=== PATIENT | female | born 1990 | race Caucasian/White ===

== ENCOUNTER 2020-01-04 16:33 | Emergency (ER) | payer OTHER ==
[2020-01-04] MEDS ORDERED: diphenhydrAMINE 50 MG/ML 1 ML VIAL IVP STA (16:54)
[2020-01-04] MEDS ORDERED: METOCLOPRAMIDE 5 MG/ML 2 ML VIAL IVP STA (16:54)
[2020-01-04] MEDS ORDERED: SODIUM CHLORIDE 0.9% 1,000 ML IV STA ×2 (16:54)
--- NOTE | 2020-01-04 17:05 | ED ---
Headache HPI - General Chief Complaint: Headache Stated Complaint: migraine/blurred vision Time Seen by Provider: 01/04/20 16:43 Source: RN notes reviewed, old records reviewed Mode of arrival: ambulatory Limitations: no limitations - History of Present Illness Initial Comments: Patient is a 29-year-old female with a history of migraines and ulcerative colitis. She presents today with complaints of migraine headache starting 5 days ago. She reports that at that time she follows her initial migraine headache because she also complained of some visual loss. She states it seems like tunnel vision at the time. She comes the emergency department today stating that her headache is still 4 out of 10. But she is mainly concerned because she's had visual changes. She states that she is feels like she is missing spots from her vision. Patient states that she's had no history of strokes. She does have a history of a heart murmur defect repair as ago. She has been taking Tylenol for pain relief. She complains of some chronic nausea and chronic abdominal pain from ulcerative colitis. She denies any fevers or chills. Denies any neck pain or stiffness. - Related Data Allergies Allergy/AdvReac Type Severity Reaction Status Date / Time azithromycin Allergy Anaphylaxis Verified 01/04/20 16:38 acetaminophen [From Vicodin] AdvReac Unknown Verified 01/04/20 16:38 hydrocodone [From Vicodin] AdvReac Unknown Verified 01/04/20 16:38 Review of Systems ROS Statement: Those systems with pertinent positive or pertinent negative responses have been documented in the HPI. ROS Other: All systems not noted in ROS Statement are negative. Past Medical History Additional Past Medical History / Comment(s): migraines, ulcerative collitis History of Any Multi-Drug Resistant Organisms: None Reported Additional Past Surgical History / Comment(s): ASD repair 2006 Past Psychological History: No Psychological Hx Reported Smoking Status: Current every day smoker Past Alcohol Use History: None Reported Past Drug Use History: None Reported General Exam - General Exam Comments Initial Comments: Alert and oriented 29-year-old female. No distress. Limitations: no limitations General appearance: alert, in no apparent distress Head exam: Present: atraumatic, normocephalic, normal inspection Eye exam: Present: normal appearance, PERRL, EOMI. Absent: scleral icterus, conjunctival injection, periorbital swelling ENT exam: Present: normal exam, mucous membranes moist Neck exam: Present: normal inspection. Absent: tenderness, meningismus, lymphadenopathy Respiratory exam: Present: normal lung sounds bilaterally. Absent: respiratory distress, wheezes, rales, rhonchi, stridor Cardiovascular Exam: Present: regular rate, normal rhythm, normal heart sounds. Absent: systolic murmur, diastolic murmur, rubs, gallop, clicks GI/Abdominal exam: Present: soft, normal bowel sounds. Absent: distended, tenderness, guarding, rebound, rigid Extremities exam: Present: normal inspection, full ROM, normal capillary refill. Absent: tenderness, pedal edema, joint swelling, calf tenderness Back exam: Present: normal inspection Neurological exam: Present: alert, oriented X3, CN II-XII intact Psychiatric exam: Present: normal affect, normal mood Skin exam: Present: warm, dry, intact, normal color. Absent: rash Course Vital Signs 01/04/20 01/04/20 16:34 18:20 Temperature 98.3 F Pulse Rate 90 Respiratory 18 16 Rate Blood Pressure 114/78 O2 Sat by Pulse 100 Oximetry Medical Decision Making - Medical Decision Making This is a 29-year-old female presents emergency department today for evaluation for headache migraine headache for the past 4 days. She also reports body blurry vision. Patient has no eye pain. Visual acuity is intact and 20/25 in the right 20/40 on the left. She is given migraine cocktail reports her headaches improved. She still complains some abnormal vision. Ophthalmic exam was completed and shows no abnormal retinal findings at this time. And her description sign consistent with retinal detachment. Computed tomography scan of the brain was completed and negative for acute process. Patient will be advised to follow-up with ophthalmology. Discussed return parameters. - Lab Data Result diagrams: 01/04/20 16:45 01/04/20 16:45 Lab Results 01/04/20 01/04/20 Range/Units 16:45 16:45 WBC 6.5 (3.8-10.6) k/uL RBC 4.79 (3.80-5.40) m/uL Hgb 9.2 L (11.4-16.0) gm/dL Hct 34.3 (34.0-46.0) % MCV 71.6 L (80.0-100.0) fL MCH 19.3 L (25.0-35.0) pg MCHC 26.9 L (31.0-37.0) g/dL RDW 17.1 H (11.5-15.5) % Plt Count 368 (150-450) k/uL Neutrophils % 72 % Lymphocytes % 19 % Monocytes % 4 % Eosinophils % 2 % Basophils % 0 % Neutrophils # 4.7 (1.3-7.7) k/uL Lymphocytes # 1.3 (1.0-4.8) k/uL Monocytes # 0.2 (0-1.0) k/uL Eosinophils # 0.1 (0-0.7) k/uL Basophils # 0.0 (0-0.2) k/uL Hypochromasia Marked Anisocytosis Slight Microcytosis Moderate Sodium 139 (137-145) mmol/L Potassium 4.0 (3.5-5.1) mmol/L Chloride 110 H (98-107) mmol/L Carbon Dioxide 23 (22-30) mmol/L Anion Gap 6 mmol/L BUN 8 (7-17) mg/dL Creatinine 0.68 (0.52-1.04) mg/dL Est GFR (CKD-EPI)AfAm >90 (>60 ml/min/1.73 sqM) Est GFR (CKD-EPI)NonAf >90 (>60 ml/min/1.73 sqM) Glucose 135 H (74-99) mg/dL Calcium 9.0 (8.4-10.2) mg/dL - Radiology Data Radiology results: report reviewed CT brain is negative for any acute process. Disposition Clinical Impression: Headache, Blurred vision Disposition: HOME SELF-CARE Instructions (If sedation given, give patient instructions): Blurred Vision (ED), Migraine Headache (ED) Additional Instructions: Recommended follow-up with ophthalmology. Return to the emergency department if any alarming signs or symptoms occur. Continue to take motrin and tylenol for headache. Is patient prescribed a controlled substance at d/c from ED?: No Referrals: None,Stated [Primary Care Provider] - 1-2 days Lars Rodriguez MD [STAFF PHYSICIAN] - 1-2 days Time of Disposition: 19:00
--- NOTE | 2020-01-04 18:01 | CT ---
EXAMINATION TYPE: CT brain wo con DATE OF EXAM: 01/04/2020 COMPARISON: None HISTORY: Headache x [address] DLP: 1068.4 mGycm Automated exposure control for dose reduction was used. Multiple axial sections were obtained of the brain without contrast. Ventricles and sulci appear normal. There is no mass effect nor midline shift. There is no sign of in tracranial hemorrhage. The calvarium is intact. IMPRESSION: Normal unenhanced head CT scan.
[2020-01-04] MEDS ORDERED: KETOROLAC 30 MG/ML 1 ML VIAL IVP STA (18:04)
[2020-01-04 18:09] LABS: Anisocytosis Slight; Basophils % (A) 0 %; Eosinophils # (A) 0.1 k/uL (0-0.7); Eosinophils % (A) 2 %; HCT 34.3 % (34.0-46.0); HGB 9.2 gm/dL (11.4-16.0); Hypochromasia Marked; Lymphocytes # (A) 1.3 k/uL (1.0-4.8); Lymphocytes % (A) 19 %; MCH 19.3 pg (25.0-35.0); MCHC 26.9 g/dL (31.0-37.0); MCV 71.6 fL (80.0-100.0); Mean Platelet Volume 6.9; Microcytosis Moderate; Monocytes # (A) 0.2 k/uL (0-1.0); Monocytes % (A) 4 %; Neutrophils # (A) 4.7 k/uL (1.3-7.7); Neutrophils % (A) 72 %; Platelet Count 368 k/uL (150-450); RBC 4.79 m/uL (3.80-5.40); RDW 17.1 % (11.5-15.5); WBC 6.5 k/uL (3.8-10.6)
[2020-01-04 18:22] VITALS: RESP 16
[2020-01-04 18:25] LABS: African American GFR (CKD) >90 (>60 ml/min/1.73 sqM); Anion Gap 6 mmol/L; Blood Urea Nitrogen 8 mg/dL (7-17); Carbon Dioxide 23 mmol/L (22-30); Chloride 110 mmol/L (98-107); Glucose 135 mg/dL (74-99); Non-African American GFR(CKD) >90 (>60 ml/min/1.73 sqM); Sodium 139 mmol/L (137-145)
[2020-01-04 19:16] VITALS: BP 123/72; PULSE 88; TEMP 98.4
== END 2020-01-04 19:00 | disposition home or self-care (01) ==
LOC: EC 16:33
DX: H53.8 Other visual disturbances (principal); R51 Headache; K51.90 Ulcerative colitis, unspecified, without complications; F17.200 Nicotine dependence, unspecified, uncomplicated; Z88.1 Allergy status to other antibiotic agents; Z88.5 Allergy status to narcotic agent; Z88.6 Allergy status to analgesic agent; Z86.69 Personal history of other diseases of the nervous system and sense organs; Z98.890 Other specified postprocedural states
CPT/HCPCS: 99284; 96374; 96375 ×2; 96361 ×2; 36415; 80048; 85025; 70450; J1200; J2765; J1885